=== PATIENT | male | born 1950 | race Caucasian/White ===

== ENCOUNTER 2017-02-19 15:29 | Observation (INO) ==
--- NOTE | 2017-02-19 15:48 | Order Completion Report ---
See report scanned to EMR
--- NOTE | 2017-02-19 15:53 | Emergency Department Note ---
Arrival - Arrival Chief Complaint: Chest Pain Stated Complaint: chest pain ED Nursing Triage Note: Pt c/o Chest tightness and SOB x [address] Lester's office Mode of Arrival: Ambulatory Limitations: No Limitations Source: Patient, RN Notes Reviewed Time Seen by Provider: 02/19/17 15:41 - History of Present Illness HPI Narrative: Patient is a 67-year-old white male routinely followed by Dr. Valenzuela who was sent from his office this morning due to evaluation of chest pain which revealed an elevated troponin. Patient states that he has been having on and off substernal chest tightness and shortness of breath with exertion. He has no prior history of coronary artery disease. He denies any diabetes mellitus or hypertension. Patient does not smoke. Patient states that he has noticed shortness of breath and chest tightness when he exerts himself by walking to his son's football game. He states that sometimes when he uses the weedeater he does not get chest pain or shortness of breath. Patient was noted to have an abnormal EKG at Dr. Valenzuela's office. Onset (ago): week(s) (2) Consistency: intermittent Severity: moderate Allergies/Adverse Reactions: Allergies Allergy/AdvReac Type Severity Reaction Status Date / Time No Known Allergies Allergy Verified 06/11/15 15:54 Review of System - Review of System 12 point system: reviewed and no additional remarkable complaints except as stated - Review of System Cardiovascular: Present: chest pain, dyspnea on exertion. Absent: orthopnea Gastrointestinal: Absent: abdominal pain, nausea, vomiting Medical,Surgical,& Family Hx - Medical History Endocrine: History of: Thyroid Disorder - Surgical History Abdominal Surgeries: Surgical HX of: Colonoscopy - Social History Smoking Status: Former smoker Functional capacity: independent ambulation Exam Vital Signs: Vital Signs Temperature 97.9 F 02/19/17 15:30 Pulse Rate 79 02/19/17 15:30 Respiratory Rate 16 02/19/17 15:30 Blood Pressure 156/96 02/19/17 15:30 O2 Sat by Pulse Oximetry 98 02/19/17 15:30 GENERAL: This is a well-nourished well-developed white male in no apparent distress. VITAL SIGNS: Reviewed HEENT: Head is atraumatic and normocephalic. Pupils are equal round react to light. Extraocular movements are intact. Oropharynx is benign with moist mucous membranes. NECK: Neck is soft and supple without tenderness. There are no masses. There is no lymphadenopathy. LUNGS: Lungs are clear to auscultation. Chest rises symmetrically. There is no chest wall tenderness. CV: Heart is regular rate and rhythm without murmurs rubs or gallops. ABDOMEN: Abdomen is soft, nontender to palpation. There are no abdominal abnormal masses palpated. There is no organomegaly. Bowel sounds are present and active. SKIN: Skin is warm and dry. No rash. EXTREMITIES: Patient has full range of motion without tenderness. There is no pedal edema. NEUROLOGIC: Awake alert and oriented 4. Cranial nerves II through XII are grossly intact. Motor is 5 over 5 in all extremities bilaterally. Course Course Narrative: Patient was given aspirin, Lovenox, Lopressor, nitroglycerin paste in the emergency department. - Consultations Consultation #1: Discussed with cardiology. Patient will be admitted to their service. Time: 15:56 Results - Labs Lab Results: I have reviewed the patients labs Labs: Lab performed at Dr. Valenzuela's office and reviewed by me: Chemistry: Sodium 140, potassium 4.6, chloride 105, CO2 29.6, BUN 15, creatinine 1.1, glucose 95 CBC: WBCs 4000, hemoglobin 15.1, hematocrit 45.2, platelet count 148,000 Troponin 0.482 - EKG EKG results: interpreted by ERMD - Impressions EKG [address] Valenzuela's office: Sinus bradycardia with a rate of 56, ST segment depression in V4 through V6 consistent with ischemia. EKG #2 performed in the emergency department: Normal sinus rhythm with a rate of 71, ST segment depression V4 through V6 consistent with ischemia. Disposition Clinical Impression: Unstable angina
[2017-02-19] MEDS ORDERED: ENOXAPARIN 100 MG/ML SYRINGE SUBCUT STA (15:58)
[2017-02-19] MEDS ORDERED: ASPIRIN 325 MG TABLET PO STA (15:58)
[2017-02-19] MEDS ORDERED: NITROGLYCERIN 2% OINT 1 INCH/GM PACK TOP STA (15:58)
[2017-02-19] MEDS ORDERED: METOPROLOL TARTRATE 5 MG/5 ML VIAL IV STA (15:59)
[2017-02-19] MEDS ORDERED: ASPIRIN 325 MG TABLET ONE (16:20)
[2017-02-19] MEDS ORDERED: METOPROLOL TARTRATE 5 MG/5 ML VIAL IV ONE (16:20)
[2017-02-19] MEDS ORDERED: NITROGLYCERIN 2% OINT 1 INCH/GM PACK TOP ONE (16:20)
[2017-02-19] MEDS ORDERED: ENOXAPARIN 100 MG/ML SYRINGE SUBCUT ONE (16:20)
[2017-02-19 16:29] LABS: PT Patient Result 10.7 SECS; Partial Thromboplastin Time 26.8 SECS (0-40)
--- NOTE | 2017-02-19 16:54 | XRay Report ---
Exam: XR chest 1V portable Indication: Midline chest pain Comparison study: None Findings: The heart, mediastinum, and bony structures are within normal limits. Diffuse punctate calcific densities noted throughout both lungs in a random distribution may represent evidence of prior granulomatous or tuberculous process. There is no focal consolidation, pneumothorax or pleural effusion identified. Multiple old right-sided rib fractures are also noted. Impression: No acute cardiopulmonary process. Other incidental findings as above. PROCEDURE INTERPRETED AT [facility] DEPARTMENT OF RADIOLOGY Final Report Signed by: Casitllo Jones
--- NOTE | 2017-02-19 16:57 | Cardiology History & Physical ---
<Aiyana Alvarez - Last Filed: 02/19/17 16:34> Assessment and Plan - Time spent with patient Time spent with patient: Greater than 30 minutes (1) Chest pain Status: Acute Assessment and plan: SEE PLAN OF CARE LISTED BELOW. Current Visit: Yes (2) Hypothyroidism Status: Chronic Assessment and plan: SEE PLAN OF CARE LISTED BELOW. Current Visit: Yes (3) Palpitations Status: Chronic Assessment and plan: SEE PLAN OF CARE LISTED BELOW. 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 Maldonado Mr. Feng is a 67 year old male without known history of coronary artery disease , not routinely followed by cardiology. Cardiac risk factors include: Former smoker (quit 20 years ago), family history of coronary artery disease (father had VT in his 60s) and advanced age. Past medical history includes hypothyroidism. Patient reports that he did see Dr. rothman in the remote past and received stress test approximately 5 years ago. This was normal at that time per his report. Denies ever undergoing heart catheterization. Patient reports that he began having palpitations approximately 2 weeks ago. He has been having trouble with palpitations for several years and reports that they usually resolve on their own. However, 2 weeks his episode of palpitations was prolonged and lasted all day. He has never been diagnosed with atrial fibrillation. His palpitations, resolved on their own the following day. Denies near syncope or syncopal episode, lightheadedness. Trying to get him with Dr. Valenzuela reports at that time to be further evaluated. Around 1 week ago he reports that he was going to the who brought him to watch his grandson play football. He walks at least 100 yards and he developed midsternal chest tightness with radiation down his left arm. He also had accompanied shortness of breath, nausea and diaphoresis. Reports that he stopped and rest and his chest tightness resolved. He is unsure of exactly how long his chest tightness lasted. He feels that it lasted 5-10 minutes. He also reports a change in his exercise tolerance. He remains very active at home. However, lately he has been unable to perform his usual activities due to dyspnea on exertion and easy fatigability. This is concerned him and he felt that she be further evaluated. He had an appointment to see Dr. Valenzuela today. Dr. Lester sent patient over for lab draw. His troponin was noted to be abnormal at 0.4 and patient was advised to come to the emergency department. Cardiology was called to admit the patient. He will be admitted to the telemetry unit. Of note, he denies fever, chills, cough, orthopnea, lower extremity swelling and PND. Patient was seen and examined in the emergency department. He is currently without complaints of chest pain, heaviness or tightness. Without complaints of shortness of breath. First set of cardiac biomarkers positive. Troponin 0.482. Total creatinine kinase 361. EKG does reveal ST depression anteriolaterally. Suspect non-ST elevation VT. Patient did receive therapeutic dose Lovenox in the emergency department along with full dose aspirin. I discussed this case with Dr. Nadia Maldonado. We will keep patient n.p.o. after midnight tonight. We will cycle cardiac biomarkers and EKGs and plan for left heart catheterization in the morning. I discussed risk and benefits of this procedure with the patient. He denies having allergy to shellfish or IVP dye. He and his are both agreeable to proceed with this procedure in the morning. IMPRESSION AND PLAN: 1. CHEST PAIN - Typical for angina. Suspect non-ST elevation VT. Received therapeutic dose Lovenox and full dose aspirin ER. First set of cardiac biomarkers positive with troponin is 0.482. Total creatinine kinase 361. EKG does reveal ST depression anteriolaterally. I discussed this case with Dr. Nadia Maldonado. We will keep patient n.p.o. after midnight and plan for left heart catheterization in the morning if renal function is stable. We will continue to cycle cardiac biomarkers and EKGs. Continue aspirin, nitrates. I have initiated beta-blockade and lipid-lowering agent. Lipid panel in the morning. Further plan and addendum to follow per Dr. Nadia Maldonado. 2. PALPITATIONS - Patient did have episode of palpitations roughly 2 weeks ago and reports that this is a chronic issue for him. We will monitor patient on the medical technologist clinical. Optimize electrolytes. Patient may be candidate for event monitor at discharge. 3. HYPOTHYROIDISM - Continue Synthroid. TSH and free T4 ordered. Home Medications Medication Instructions Recorded Confirmed Type Aspirin [Ecotrin] 81 mg PO BEDTIME 02/19/17 02/19/17 History Calcium Carb/Mag Ox/Zinc Sulf 1 each PO TUTHSA@2100 02/19/17 02/19/17 History [Oysqgjn-Xnboqulou-Cqqs Tablet] Cetirizine Tab [ZyrTEC Tab] 10 mg PO DAILY 02/19/17 02/19/17 History Glucosamine 500 mg PO MOWEFR@2100 02/19/17 02/19/17 History Levothyroxine Tab [Synthroid Tab] 50 mcg PO DAILY@0700 02/19/17 02/19/17 History Polyethylene Glycol Powder 17 gm PO DAILY 02/19/17 02/19/17 History [Miralax] Allergies Allergy/AdvReac Type Severity Reaction Status Date / Time No Known Allergies Allergy Verified 06/11/15 15:54 - Constitutional Constitutional: Present: as per HPI, fatigue. Absent: chills, fever(s), headache(s), malaise, weakness, weight gain, weight loss - EENT Eyes: Present: as per HPI. Absent: blurry vision, diplopia, loss of vision Nose, mouth and throat: Present: as per HPI. Absent: epistaxis, headache(s), nasal congestion, neck pain, sinus pressure, sore throat, throat swelling, tongue swelling - Cardiovascular Cardiovascular: Present: as per HPI, chest pain with activity, diaphoresis, dyspnea, dyspnea on exertion, radiating jaw, neck or arm pain, palpitations. Absent: chest pain at rest, claudication, edema, lightheadedness, orthopnea, PND - Respiratory Respiratory: Present: as per HPI, dyspnea, dyspnea on exertion. Absent: cough, hemoptysis, wheezing, snoring, pain on inspiration, change in phlegm color - Gastrointestinal Gastrointestinal: Present: as per HPI, nausea. Absent: abdominal pain, change in bowel habits, coffee ground emesis, heartburn, hematemesis, hematochezia, melena, vomiting - Neurological Neurological: Present: as per HPI. Absent: abnormal gait, abnormal speech, behavioral changes, dizziness, frequent falls, headache(s), syncope - Psychiatric Psychiatric: Present: as per HPI. Absent: anxiety, depression, panic attacks - Hematologic/Lymphatic Hematologic/Lymphatic: Present: as per HPI. Absent: easy bleeding, easy bruising Medical,Surgical,& Family Hx - Medical History Endocrine: History of: Thyroid Disorder - Surgical History Abdominal Surgeries: Surgical HX of: Colonoscopy - Family History Family History: Reports;: Family Heart Disease - Social History Smoking Status: Former smoker Type of Drug Use: None Marital Status: Lives With:: Spouse Functional capacity: independent ambulation Cardiology Physical Exam - Constitutional Vitals: Vital Signs Temp Pulse Resp BP Pulse Ox 97.9 F 79 16 156/96 98 02/19/17 15:35 02/19/17 15:35 02/19/17 15:35 02/19/17 15:35 02/19/17 15:35 Intake and Output 02/19/17 02/19/17 02/19/17 06:59 14:59 22:59 Other: Weight 225 lb Patient Weight 02/20/17 06:59 Weight 225 lb Exam: General: Appears well with no apparent distress. Pleasant and cooperative. Appears comfortable. HEENT: PERRL, normocephalic, atraumatic. Mucous membranes moist. No jaundice noted. Conjunctiva moist and clear, sclerae anicteric Neck: No JVD/HJR, no thyromegaly or lymphadenopathy noted. No carotid bruit appreciated Cardiac: Regular rate and rhythm. No murmur rub or gallop. Lungs: Clear to auscultation without accessory muscle use to assist the respiratory pattern. Not requiring oxygen. Abdomen: Soft, bowel sounds normoactive. Nontender and nondistended. No abdominal bruit or thrill noted. No masses noted. Extremities: No clubbing, cyanosis noted. No edema noted. Upper extremity pulses 2+. Lower extremity pulses 2+. Capillary refill less than 3 seconds. Skin: No unusual lesions or rashes. No skin breakdown appreciated. Neuro: Awake, alert and oriented 3. Moves all extremities well without hemiparesis or paralysis. No essential tremor is appreciated. Result/EKG - Labs Lab Results: I have reviewed the past 24 hour labs Labs: Laboratory Results - last 24 hr 02/19/17 15:53 INR 1.0 PT Patient/Control Mix 10.7 Circ Anticoag PTT 26.8 <Nadia Maldonado - Last Filed: 02/19/17 17:09> History of Present Illness History of present illness: I have personally interviewed and examined the patient, reviewed the chart and discussed medical decision-making with practitioner Antonio. I have read this note and agree with the documentation herein. The patient has typical crescendo anginal symptoms. I have discussed the role, risks and benefits of catheterization with the patient and he is agreeable to proceeding. We will plan this for tomorrow. Cardiology Physical Exam - Constitutional Vitals: Vital Signs Temp Pulse Resp BP Pulse Ox 97.9 F 79 16 156/96 98 02/19/17 17:04 02/19/17 17:04 02/19/17 17:04 02/19/17 17:04 02/19/17 15:35 Intake and Output 02/19/17 02/19/17 02/19/17 07:59 15:59 23:59 Other: Weight 102.058 kg Patient Weight 02/19/17 23:59 Weight 102.058 kg Result/EKG - Labs Labs: Laboratory Results - last 24 hr 02/19/17 02/19/17 15:53 15:53 INR 1.0 PT Patient/Control Mix 10.7 Circ Anticoag PTT 26.8 Troponin I 0.540 H
[2017-02-19] MEDS ORDERED: DOCUSATE SODIUM 100 MG CAPSULE PO PRN (17:06)
[2017-02-19] MEDS ORDERED: MORPHINE 2 MG/1 ML SYRINGE ONE (17:09)
[2017-02-19] MEDS ORDERED: ONDANSETRON 4 MG/2 ML VIAL ONE (17:09)
--- NOTE | 2017-02-19 17:11 | History and Physical Update ---
Sedation H&P Update - History and Physical H&P was reviewed, the patient examined and there: are no changes in the patients condition since last H&P was completed. - Dictation Physical: refer to H&P completed by admitting physician - Physical Exam Mental Status: alert and oriented Heart: regular rate and rhythm Lung: clear to auscultation Abdomen: within normal limits Vitals: within normal limits - Sedation Plan for Sedation: moderate Patient Consent: Procedure disscussed with patient and patinet has consented., Risks and benefits were discussed with patient,including infection,, bleeding, injury to surrounding structures, seizure, temporary nerve, Patient understands and accepts potential risks/benefits and agrees to, proceed. ASA Class: III Airway Assessment: Class I: Soft palate, uvula, fauces, pillars visible
[2017-02-19] MEDS ORDERED: ONDANSETRON 4 MG/2 ML VIAL IV STA (17:19)
[2017-02-19] MEDS ORDERED: MORPHINE 2 MG/1 ML SYRINGE IV STA (17:19)
[2017-02-19] MEDS ORDERED: MAGNESIUM SULF RIDER 2 GM in PREMIX 1 EACH IV PRN (17:30)
[2017-02-19] MEDS ORDERED: POTASSIUM CHLORIDE 20 MEQ TABLET PO PRN (17:30)
[2017-02-19 17:31] LABS: Free T4 (Free Thyroxine) 0.81 NG/DL (0.76-1.46); Thyroid Stimulating Hormone 5.02 uIU/ml (0.358-3.74)
[2017-02-19 17:50] LABS: Basophils % 0.9 % (0.0-0.8); Eosinophils # 0.1 10*3/uL (0.0-0.87); Eosinophils % 3.1 % (0.00-10.9); Hematocrit 41.6 VOL% (42.0-52.0); Hemoglobin 14.3 GM/DL (14.0-18.0); Immature Granulocytes % 0.2 %; Immature Granulocytes Absolute 0.01 #; Lymphocytes % 22.4 % (21.2-54.2); Mean Corpuscular HGB Conc 34.4 GM/DL (32-36); Mean Corpuscular Hemoglobin 31 PG (27-34); Mean Corpuscular Volume 91.4 FL (87-102); Monocytes # 0.5 10*3/uL (0.11-0.8); Monocytes % 10.8 % (1.7-12.7); Neutrophils # 2.7 10*3/uL (1.4-7.4); Neutrophils % 62.6 % (38.7-73.9); Platelet Count 144 T/CUMM (130-400); Red Blood Count 4.55 MC/CUMM (3.8-5.5); Red Cell Distribution Width 13.6 % (9.3-17.3); White Blood Count 4.2 T/CUMM (4-12)
[2017-02-19 18:09] LABS: CKMB % 1.8 %
[2017-02-19 18:12] LABS: Troponin I Only 0.545 NG/ML (0.00-0.045)
[2017-02-19 18:22] LABS: Calcium 8.5 MG/DL (8.5-10.1); Magnesium 2.2 MG/DL (1.8-2.4)
[2017-02-19] MEDS ORDERED: GLUCOSAMINE 500 MG TABLET PO SCH (21:00)
[2017-02-19 21:24] LABS: CKMB % 1.8 %
[2017-02-19 21:30] LABS: Troponin I Only 0.648 NG/ML (0.00-0.045)
[2017-02-19] MEDS: ROSUVASTATIN 10 MG TABLET PO SCH (22:55)
[2017-02-19] MEDS: CARVEDILOL 3.125 MG TABLET PO SCH (22:58)
[2017-02-19] MEDS: ASPIRIN EC 81 MG TABLET PO SCH (22:59)
[2017-02-20 02:42] LABS: Basophils % 0.7 % (0.0-0.8); Eosinophils # 0.1 10*3/uL (0.0-0.87); Eosinophils % 2.8 % (0.00-10.9); Hematocrit 38.9 VOL% (42.0-52.0); Hemoglobin 13.3 GM/DL (14.0-18.0); Immature Granulocytes % 0.7 %; Immature Granulocytes Absolute 0.03 #; Lymphocytes # 1.1 10*3/uL (1.4-4.0); Lymphocytes % 25.8 % (21.2-54.2); Mean Corpuscular HGB Conc 34.2 GM/DL (32-36); Mean Corpuscular Hemoglobin 31 PG (27-34); Mean Corpuscular Volume 91.3 FL (87-102); Mean Platelet Volume 11.4 FL (9.6-12.0); Monocytes # 0.5 10*3/uL (0.11-0.8); Monocytes % 11.1 % (1.7-12.7); Neutrophils # 2.6 10*3/uL (1.4-7.4); Neutrophils % 58.9 % (38.7-73.9); Platelet Count 118 T/CUMM (130-400); Red Blood Count 4.26 MC/CUMM (3.8-5.5); Red Cell Distribution Width 13.8 % (9.3-17.3); White Blood Count 4.3 T/CUMM (4-12)
[2017-02-20 03:08] LABS: Cholesterol 177 MG/DL (50-200); HDL Cholesterol 30 MG/DL (40-60); Triglycerides 159 MG/DL (2-150); VLDL CHOLESTEROL 31.8 MG/DL
[2017-02-20 03:11] LABS: Troponin I Only 0.586 NG/ML (0.00-0.045)
[2017-02-20] MEDS ORDERED: ENOXAPARIN 100 MG/ML SYRINGE SUBCUT ONE (04:00)
[2017-02-20] MEDS: LEVOTHYROXINE 50 MCG TABLET PO SCH (06:30)
[2017-02-20] MEDS: SODIUM CHLORIDE 0.9% 1,000 ML IV SCH ×3 (06:30→15:24)
[2017-02-20 06:57] LABS: Troponin I Only 0.529 NG/ML (0.00-0.045)
[2017-02-20] MEDS: ACETAMINOPHEN 325 MG TABLET PO PRN ×2 (08:45→19:45)
[2017-02-20] MEDS ORDERED: LIDOCAINE 1% 20 ML VIAL ONE ×2 (08:47→10:06)
[2017-02-20] MEDS ORDERED: HEPARIN/NACL 0.9% 2 UNITS/ML 0 ML IV ONE (08:47)
[2017-02-20] MEDS: CARVEDILOL 3.125 MG TABLET PO SCH ×2 (09:51→20:49)
[2017-02-20] MEDS: CETIRIZINE 10 MG TABLET PO SCH (09:54)
[2017-02-20] MEDS: POLYETHYLENE GLYCOL POWDER 17 GM PACK PO SCH ×2 (09:54→17:35)
[2017-02-20] MEDS ORDERED: DIAZEPAM 5 MG TABLET PO ONE (10:00)
[2017-02-20] MEDS ORDERED: diphenhydrAMINE CAP 25 MG CAPSULE PO ONE (10:00)
[2017-02-20] MEDS ORDERED: HEPARIN/NACL 0.9% 2 UNITS/ML 1,000 ML IV ONE (10:06)
[2017-02-20] MEDS ORDERED: MIDAZOLAM 2 MG/2 ML VIAL ONE (10:07)
[2017-02-20] MEDS ORDERED: fentaNYL 100 MCG/2 ML VIAL ONE (10:07)
[2017-02-20] MEDS: PANTOPRAZOLE 40 MG TABLET PO SCH (10:21)
[2017-02-20] MEDS ORDERED: EPTIFIBATIDE 75 MG/100 ML BOTTLE IV ONE (10:22)
[2017-02-20] MEDS ORDERED: EPTIFIBATIDE 20,000 MCG/10 ML VIAL ONE (10:22)
[2017-02-20] MEDS ORDERED: EPTIFIBATIDE 75 MG/100 ML BOTTLE IV SCH (10:28)
[2017-02-20] MEDS ORDERED: TICAGRELOR 90 MG TABLET ONE (11:12)
[2017-02-20] MEDS ORDERED: ASPIRIN 325 MG TABLET ONE (11:17)
[2017-02-20] MEDS ORDERED: MORPHINE 2 MG/1 ML SYRINGE IV PRN (11:39)
[2017-02-20] MEDS ORDERED: ONDANSETRON 4 MG/2 ML VIAL IV PRN (11:39)
[2017-02-20] MEDS ORDERED: ACETAMINOPHEN/CODEINE 300-30 MG TABLET PO PRN (11:39)
--- NOTE | 2017-02-20 12:20 | Order Completion Report ---
See report scanned to EMR
--- NOTE | 2017-02-20 12:20 | Order Completion Report ---
See report scanned to EMR
--- NOTE | 2017-02-20 12:20 | Order Completion Report ---
See report scanned to EMR
--- NOTE | 2017-02-20 12:50 | Order Completion Report ---
See report scanned to EMR
[2017-02-20 14:42] LABS: Apearance,Urine CLEAR (Clear); Bilirubin,Urine Negative (Negative); Blood, Urine Small mg/dL (Negative); Glucose,Urine (UA) Negative (Negative); Ketones,Urine Negative (Negative); Mucus,Urine Occasional /LPF (Occasional); Nitrite,Urine Negative (Negative); Protein,Urine Negative; RBC,Urine 1 /HPF (0-4); Squamous Epithelial Cell,Urine Occasional /HPF (0-10); Urine Color Straw (Yellow); Urine Specific Gravity 1.058 (1.001-1.035); Urine Urobilinogen < 2.0 EU/DL (0.2-1.0); WBC,Urine 1 /HPF (0-6)
[2017-02-20] MEDS: ROSUVASTATIN 10 MG TABLET PO SCH (20:48)
[2017-02-20] MEDS: ASPIRIN EC 81 MG TABLET PO SCH (20:49)
[2017-02-20] MEDS: TICAGRELOR 90 MG TABLET PO SCH (20:49)
[2017-02-20] MEDS ORDERED: MULTIVITAMIN (CENTRUM) TABLET PO SCH (21:00)
[2017-02-21] MEDS: LEVOTHYROXINE 50 MCG TABLET PO SCH (06:29)
--- NOTE | 2017-02-21 07:16 | Order Completion Report ---
See report scanned to EMR
[2017-02-21] MEDS ORDERED: ROSUVASTATIN 20 MG TABLET PO SCH ×2 (07:40→21:00)
--- NOTE | 2017-02-21 08:01 | Discharge Summary ---
Hospital Course - Hospital Course Hospital Course: I have personally interviewed and examined the patient, reviewed the chart and discussed medical decision-making with practitioner Antonio. I have read this note and agree with the documentation herein. 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 Adarsh Valenzuela Mr. Feng is a 67 year old male without known history of coronary artery disease , not routinely followed by cardiology. Cardiac risk factors include: Former smoker (quit 20 years ago), family history of coronary artery disease (father had MT in his 60s) and advanced age. Past medical history includes hypothyroidism. Patient reports that he did see Dr. griffin in the remote past and received stress test approximately 5 years ago. This was normal at that time per his report. Patient presented to [facility] 19, 2017 with complaints of typical crescendo angina. Diagnosed with non-ST elevation MT and underwent left heart catheterization per Dr. Nadia Maldonado February 20, 2017. Patient is now status post successful PCI of the mid LAD. Please see full cath report for complete details. Post heart catheterization, patient was transported to the telemetry unit in stable condition. He has done well and has been without complications. He has been without recurrent chest pain, heaviness or tightness. Right groin is stable without bleeding, hematoma or bruit. Distal pulses 2+. Patient has ambulated without difficulty. Groin has remained stable post ambulation. Right groin precautions have been reviewed with the patient. He verbalizes understanding. I have also discussed the importance of absolute compliance with dual antiplatelet therapy. Patient will be discharged home on both aspirin and Brilinta. He will be given a 30 day free card at discharge for Brilinta. Per heart catheterization, patient had preserved ejection fraction of 55%. Lipid panel was checked this hospitalization revealed LDL of 123. Patient will be discharged home with high intensity statin. Patient also had complaints of palpitations upon admission. This is been going on for several years. If this has not improved status post revascularization, event monitor can be considered as an outpatient. Thyroid studies within normal limits. Electrolytes within acceptable range. Patient's blood pressure has been well controlled with beta blockade this hospitalization. Creatinine stable post catheterization. Patient reports that he has seen Dr. Griffin in the remote past and has requested to follow up with him as an outpatient. He has been given a follow-up appointment in 2 weeks for groin check, EKG and CBC. He will also follow-up with his PCP in 1 month for management of his comorbidities. Patient is anxious for discharge home. Having felt that he has not maximal medical therapy, he will be discharged home in stable condition. Patient verbalizes understanding of discharge instructions and discharge medications. HE WILL BE GIVEN A PRESCRIPTION FOR THE FOLLOWING MEDICATIONS AT DISCHARGE: Coreg 6.25 mg p.o. twice daily Crestor 40 mg p.o. at bedtime Brilinta 90 mg p.o. twice daily Aspirin 81 mg daily Nitroglycerin sublingual tablets as needed for chest - Time spent with patient Time with patient DS: Greater than 30 minutes Diagnosis - Discharge Diagnosis (1) Non-ST elevation MT (NSTEMI) Status: Acute (2) Chest pain Status: Resolved (3) Hypothyroidism Status: Chronic (4) Palpitations Status: Chronic (5) Coronary artery disease Status: Acute (6) Status post coronary artery stent placement Status: Acute (7) Dyslipidemia Status: Acute Specialty Discharge - Follow Up or Referrals Follow up with: Moe Zhu MD [Physician] - 03/09/17 10:00 am (EKG, CBC Be there at 10 for lab work with f/u appt at 10:20 a.m.) Adarsh Lester MD [Primary Care Provider] - 03/21/17 11:00 am Discharge Plan - Discharge Data Disposition: Disch To Home/Self Care Condition at Discharge: Stable Discharge Diet: heart healthy, low fat, low cholesterol, low salt diet Activity: no lifting (No heavy lifting or squatting 1 week), other (Post cath expectations) Hygiene: may shower, other (Avoid baths for 1 week. May shower.) Weight Bearing at Discharge: weight bear as tolerated Driving: other (Post cath expectations) Contact your physician if you experience:: fever over 101, Difficulty voiding, Redness or swelling, Nausea/Vomiting, Shortness of breath, Bleeding, pain uncontrolled by pain medications - Discharge Medications New Carvedilol [Coreg] 6.25 mg PO BID #60 tablet Ticagrelor [Brilinta] 90 mg PO BID #60 tablet Rosuvastatin [Crestor] 40 mg PO BEDTIME #60 tablet Nitroglycerin Sl Tab [Nitrostat] 0.4 mg SL Q5M PRN #1 bottle PRN Reason: Chest Pain Continue Polyethylene Glycol Powder [Miralax] 17 gm PO 0700 Cetirizine Tab [ZyrTEC Tab] 10 mg PO 0700 Levothyroxine Tab [Synthroid Tab] 50 mcg PO DAILY@0700 Aspirin [Ecotrin] 81 mg PO BEDTIME #30 Glucosamine 500 mg PO MOWEFR@2100 Calcium Carb/Mag Ox/Zinc Sulf [Bzedsit-Ovgphsnpw-Imjf Tablet] 1 each PO TUTHSA@2100 Docusate Sodium [Colace] 100 mg PO BEDTIME PRN PRN Reason: Constipation - Follow Up or Referral Follow Up: Moe Zhu MD [Physician] - 03/09/17 10:00 am (EKG, CBC Be there at 10 for lab work with f/u appt at 10:20 a.m.) Adarsh Lester MD [Primary Care Provider] - 03/21/17 11:00 am - Forms/Instructions Instructions: Myocardial Infarction (DC), Left Heart Catheterization (DC), Heart Healthy Diet (GEN), Coronary Intravascular Stent Placement, System Software Developer (GEN) Exam - Constitutional Vitals: Period Temp Pulse Resp BP Sys/[place] Pulse Ox Last 24 Hr 98.0 F-100 F 68-82 18-20 111-148/58-79 94-98 Exam: General: Appears well with no apparent distress. Pleasant and cooperative. Appears comfortable. HEENT: PERRL, normocephalic, atraumatic. Mucous membranes moist. No jaundice noted. Conjunctiva moist and clear, sclerae anicteric Neck: No JVD/HJR, no thyromegaly or lymphadenopathy noted. No carotid bruit appreciated Cardiac: Regular rate and rhythm. No murmur rub or gallop. Lungs: Clear to auscultation without accessory muscle use to assist the respiratory pattern. Not requiring oxygen. Abdomen: Soft, bowel sounds normoactive. Nontender and nondistended. No abdominal bruit or thrill noted. No masses noted. Extremities: No clubbing, cyanosis noted. No edema noted. Upper extremity pulses 2+. Lower extremity pulses 2+. Capillary refill less than 3 seconds. Right groin soft without bleeding, hematoma or bruit. Distal pulses 2+. Skin: No unusual lesions or rashes. No skin breakdown appreciated. Neuro: Awake, alert and oriented 3. Moves all extremities well without hemiparesis or paralysis. No essential tremor is appreciated. Discharge Results Labs on day of discharge: Labs from last 24 hours 02/21/17 02/21/17 02/20/17 09:22 09:22 14:20 WBC 6.7 D RBC 4.78 Hgb 15.1 Hct 43.7 MCV 91.4 MCH 32 MCHC 34.6 RDW 13.5 Plt Count 137 MPV 11.9 Neut % (Auto) 79.4 H Lymph % (Auto) 7.8 L Gilliam % (Auto) 10.0 Eos % (Auto) 1.6 Baso % (Auto) 0.6 Neut # (Auto) 5.3 Lymph # (Auto) 0.5 L Gilliam # (Auto) 0.7 Eos # (Auto) 0.1 Baso # (Auto) 0.0 Immature Gran % 0.6 Nucleated RBC % 0.0 Immature Gran # 0.04 Nucleated RBCs # 0.00 Immature Plt Fraction 8.1 H Sodium 140 Potassium 4.0 Chloride 106 Carbon Dioxide 29 Anion Gap 9.0 BUN 13 Creatinine 1.20 GFR Calculation 81 BUN/Creatinine Ratio 10.00 Glucose 95 Calculated Osmolality 278.4 Calcium 8.9 Magnesium 2.4 Urine Color Straw Urine Appearance Clear Urine pH 7.0 Ur Specific [place] 1.058 H Urine Protein Negative Urine Glucose (UA) Negative Urine Ketones Negative Urine Blood Small Urine Nitrate Negative Urine Bilirubin Negative Urine Urobilinogen < 2.0 H Urine Leukocytes Negative Urine RBC 1 Urine WBC 1 Ur Squamous Epith Cells Occasional Urine Mucus Occasional Ur Culture Indicated? Not indicated - Imaging and Cardiology Cardiology Procedure: report reviewed by me Procedure: Chest x-ray: report reviewed by me DS: Provider Date of admission: 02/19/17 17:06 Primary care physician: Adarsh Lester MD Attending physician on admission: Nadia Maldonado, Consults: 02/19/17 17:31 Consult to Cardiac Rehabilitation [CONS] Routine Reason for Cardiac Rehabilitation: Risk Factor Modification Other Consult Comment: Evaluate and recommend 02/20/17 11:39 Consult to Cardiac Rehabilitation [CONS] Routine Reason for Cardiac Rehabilitation: Risk Factor Modification Other Consult Comment: Evaluate and recommend Discharging clinician: Aiyana Alvarez NP Expected date of discharge: 02/21/17
[2017-02-21] MEDS: TICAGRELOR 90 MG TABLET PO SCH (09:01)
[2017-02-21] MEDS: CETIRIZINE 10 MG TABLET PO SCH (09:01)
[2017-02-21] MEDS: CARVEDILOL 3.125 MG TABLET PO SCH (09:01)
[2017-02-21] MEDS: PANTOPRAZOLE 40 MG TABLET PO SCH (09:01)
[2017-02-21] MEDS: POLYETHYLENE GLYCOL POWDER 17 GM PACK PO SCH (09:02)
[2017-02-21 10:00] LABS: Basophils % 0.6 % (0.0-0.8); Eosinophils # 0.1 10*3/uL (0.0-0.87); Eosinophils % 1.6 % (0.00-10.9); Hematocrit 43.7 VOL% (42.0-52.0); Hemoglobin 15.1 GM/DL (14.0-18.0); Immature Granulocytes % 0.6 %; Immature Granulocytes Absolute 0.04 #; Lymphocytes # 0.5 10*3/uL (1.4-4.0); Lymphocytes % 7.8 % (21.2-54.2); Mean Corpuscular HGB Conc 34.6 GM/DL (32-36); Mean Corpuscular Hemoglobin 32 PG (27-34); Mean Corpuscular Volume 91.4 FL (87-102); Mean Platelet Volume 11.9 FL (9.6-12.0); Monocytes # 0.7 10*3/uL (0.11-0.8); Neutrophils # 5.3 10*3/uL (1.4-7.4); Neutrophils % 79.4 % (38.7-73.9); Platelet Count 137 T/CUMM (130-400); Red Blood Count 4.78 MC/CUMM (3.8-5.5); Red Cell Distribution Width 13.5 % (9.3-17.3); White Blood Count 6.7 T/CUMM (4-12)
[2017-02-21 10:28] LABS: Calcium 8.9 MG/DL (8.5-10.1); Magnesium 2.4 MG/DL (1.8-2.4); Osmolality,Calculated 278.4 MOS/KG (273-304)
[2017-02-21 11:51] VITALS: BP 119/72
--- NOTE | 2017-02-21 17:49 | Order Completion Report ---
See report scanned to EMR
[2017-02-21] MEDS ORDERED: CARVEDILOL 6.25 MG TABLET PO SCH (21:00)
== END 2017-02-21 12:20 | disposition home or self-care (01) ==
LOC: N.ED 15:29 → N.EDINP 15:29 → N.TELES 17:34
PROVIDERS: ADMIT Internal Medicine Cardiovascular Disease; ATTEND Internal Medicine Cardiovascular Disease
PROC: CLCCHCL (ICD-10-PCS; 2017-02-20 12:15)